=== PATIENT | male | born 1965 | race Caucasian/White ===

== ENCOUNTER 2016-09-19 21:38 | Emergency (ER) | payer OTHER ==
[~2016-09-19] VITALS: Ht 182.9 cm; Wt 116.5 kg
[~2016-09-19 21:38] MED LIST: ANDR1GEL TD; ASPI325T PO; CARV6.252 OR; CENTTAB9 PO; ETOD500T2 PO; IBUP-238 PO; LISI-360 PO; NITR.4 SL; OMEP20TA OR; PENI500T PO; SIMV20TA OR
[2016-09-19 21:49] VITALS: BP 163/106; PULSE 86; RESP 18; TEMP 98.9; O2SAT 95
[2016-09-19 22:22] VITALS: BP 161/113; PULSE 86; RESP 18; O2SAT 95
[2016-09-19] MEDS ORDERED: ASPI325T PO (22:31)
[2016-09-19] MEDS ORDERED: CARV6.252 PO (22:32)
[2016-09-19] MEDS ORDERED: IBUP800T23 PO (22:32)
[2016-09-19] MEDS ORDERED: PLAV75TA29 PO (22:33)
[2016-09-19] MEDS ORDERED: MULT-65 PO (22:33)
[2016-09-19] MEDS ORDERED: NITR1SUB3 SL (22:33)
[2016-09-19] MEDS ORDERED: AMLO5 PO (22:34)
[2016-09-19] MEDS ORDERED: EVOL1.7I SQ/IV (22:35)
[2016-09-19] MEDS ORDERED: GEMF600T PO (22:36)
[2016-09-19] MEDS ORDERED: BACT800T5 PO (22:41)
[2016-09-19] MEDS ORDERED: DOXY100C PO (22:41)
--- NOTE | 2016-09-19 22:42 | PD ---
HPI Chief Complaint: Edema Time Seen by Provider: 22:34 Travel History International Travel<30 days: No Contact w/Intl Traveler<30days: No Traveled to known affect area: No History of Present Illness HPI The patient is a 51-year-old male that injured himself at work with scrapes to the right leg on Monday one week ago and on Monday 3 days ago. The patient knows swelling and redness above the right ankle on the right lower leg. He denies any calf tenderness, chest pain, short of breath, hemoptysis, tachycardia , syncopal or near syncopal spells. He denies any fever. His tetanus shot was within 5 years. PFSH Past Medical History Hx Anticoagulant Therapy: Yes (PLAVIX, ASA 325MG) Blood Disorders: No Cancer: No Cardiac Catheterization: Yes Cardiovascular Problems: Yes (GA X2 WITH STENTS X6) Chest Pain: Yes Diminished Hearing: No Diverticulitis: Yes (Diverticula disease ) Endocrine: No Genitourinary: No Headaches: Yes Hypertension: Yes Immune Disorder: No Psychiatric: No Reproductive: No Respiratory: No Immunizations Current: Yes Myocardial Infarction: Yes (x2) Tetanus Vaccination: < 5 Years Influenza Vaccination: No Past Surgical History Abdominal Surgery: Yes (Perforated diverticulitis with colostomy and reversal ) Appendectomy: Yes Cardiac Surgery: Yes (CARDIAC STENT PLACED MOST RECENT FEBRUARY) Cholecystectomy: Yes Coronary Stent: Yes (6 stents ) Social History Alcohol Use: No Tobacco Use: No Substance Use: No Allergies-Medications (Allergen,Severity, Reaction): Coded Allergies: No Known Allergies (Verified , 09/19/16) Reported Meds & Prescriptions Reported Meds & Active Scripts Active Reported Plavix (Clopidogrel Bisulfate) 75 Mg Tab 75 Mg PO DAILY Nitroglycerin SL (Nitroglycerin) 0.4 Mg Subl 0.4 Mg SL DIRECTED PRN ONE TABLET UNDER THE TONGUE NEEDED FOR CHEST PAIN, MAY REPEAT EVERY FIVE MINUTES FOR A TOTAL OF 3 DOSES OR CALL 911 IF NO RELIEF Multi-Vitamin Daily (Multiple Vitamin) 1 Tab Tab 1 Tab PO DAILY Ibuprofen 800 Mg Tab 800 Mg PO TID PRN Carvedilol 6.25 Mg Tab 6.25 Mg PO BID Aspirin 325 Mg Tab 325 Mg PO DAILY Review of Systems Except as stated in HPI: all other systems reviewed are Neg Physical Exam Narrative GENERAL: The patient is alert, oriented 3 in no apparent distress. His vital signs show blood pressure 163/106 but are otherwise normal. SKIN: Warm and dry. There is redness at the level of the ankle and above to about 5 cm below the knee. There is also warmth in this area. There are several minor abrasions on the skin of the right lower leg but these are healing quite well. HEAD: Atraumatic. Normocephalic. EYES: Pupils equal and round. No scleral icterus. No injection or drainage. ENT: No nasal bleeding or discharge. Mucous membranes pink and moist. NECK: Trachea midline. No JVD. CARDIOVASCULAR: Regular rate and rhythm. No murmur appreciated. RESPIRATORY: No accessory muscle use. Clear to auscultation. Breath sounds equal bilaterally. GASTROINTESTINAL: Abdomen soft, non-tender, nondistended. Hepatic and splenic margins not palpable. MUSCULOSKELETAL: No obvious deformities. No clubbing. No cyanosis. No edema. There is diffuse swelling of the skin but no pitting edema. No cord is palpated in the calf and there is no calf vein tenderness present. NEUROLOGICAL: Awake and alert. No obvious cranial nerve deficits. Motor grossly within normal limits. Normal speech. PSYCHIATRIC: Appropriate mood and affect; insight and judgment normal. Data Data Last Documented VS Vital Signs Date Time Temp Pulse Resp B/P Pulse Ox O2 Delivery O2 Flow Rate FiO2 09/19/16 22:22 86 18 161/113 95 Room Air 09/19/16 21:49 98.9 MDM Medical Decision Making Medical Screen Exam Complete: Yes Emergency Medical Condition: Yes Medical Record Reviewed: Yes Differential Diagnosis Cellulitis right lower leg, DVT, congestive heart failurehighly unlikely, contact dermatitis, allergic reaction, associated abscess Narrative Course The patient has cellulitis of the right lower leg. There is no associated abscess present. Plan: He will be given Septra and doxycycline for 10 days and follow-up with a primary care physician. He should elevate his leg above the heart and is given a 4 day work excuse. Diagnosis Primary Impression: Cellulitis of right lower leg Additional Instructions: As we discussed, it is necessary to elevate your leg above your heart. Also a heating pad as useful but turned on its lowest setting an interposed a towel between the pad on your skin and to avoid stringer. Med/Other Pt SpecificInfo: Prescription(s) given Scripts Sulfamethoxazole-Trimethoprim (Bactrim DS)800-160 Mg Tab1 Tab PO BID #20 TAB Ref 0 Prov:Hector Crowley MD 09/19/16 Doxycycline Hyclate 100 Mg [id number] Mg PO BID #20 CAP Ref 0 Prov:Hector Crowley MD 09/19/16 Disposition: 01 DISCHARGE HOME Condition: Stable Hector Crowley MD Sep 19, 2016 22:41
[2016-09-19] MEDS ORDERED: DOXYCYCLINE HYCLATE 100 MG CAP PO ONE (22:45)
[2016-09-19] MEDS ORDERED: SULFAMETHOXAZOLE-TRIMETHOPRIM DS 800-160 MG TAB PO ONE (22:45)
[2016-09-19] MEDS ORDERED: DOXYCYCLINE HYCLATE 100 MG TAB PO SCH (23:00)
== END 2016-09-19 23:10 | disposition home or self-care (01) ==
LOC: PHED 21:38
DX: L03.115 Cellulitis of right lower limb (principal); I10 Essential (primary) hypertension; Z79.01 Long term (current) use of anticoagulants; I25.2 Old myocardial infarction; X58.XXXA Exposure to other specified factors, initial encounter; Y93.9 Activity, unspecified; Y92.512 Supermarket, store or market as the place of occurrence of the external cause; Y99.0 Civilian activity done for income or pay
CPT/HCPCS: 99283